=== PATIENT | female | born 1950 | race Caucasian/White ===

== ENCOUNTER 2016-08-16 07:35 | Emergency (ER) | payer BC ==
[2016-08-16 08:00] VITALS: BP 137/68
[2016-08-16] MEDS ORDERED: predniSONE TAB* 20 MG PO ONE (08:34)
--- NOTE | 2016-08-16 08:42 | UC ---
Skin Complaint HPI - HPI Summary HPI Summary: 66 yo female with progressively worsening pruritic rash x days minimal relief with bendadryl no f/c no URI symptoms no intra oral complaints - History of Current Complaint Chief Complaint: UCRash Time Seen by Provider: 08/16/16 08:09 Stated Complaint: SKIN COMPLAINT Hx Obtained From: Patient Onset/Duration: Sudden Onset, Lasting Days Timing: Constant Onset Severity: Moderate Pain Intensity: 0 Pain Scale Used: 0-10 Numeric Location: Diffuse Character: Pruritus, Hives, Redness Aggravating: Clothing, Touch Alleviating: Cold Compresses Associated Signs & Symptoms: Positive: Rash - Allergy/Home Medications Allergies/Adverse Reactions: Allergies Allergy/AdvReac Type Severity Reaction Status Date / Time Penicillins Allergy Rash Verified 08/16/16 07:54 Home Medications: Home Medications Cetirizine* [ZyrTEC*] 10 mg PO BEDTIME 08/16/16 [History Confirmed 08/16/16] Cholecalciferol TAB* [Vitamin D TAB*] 1,000 unit PO QAM 08/16/16 [History Confirmed 08/16/16] Diphenhydramine HCl [Benadryl Allergy] 50 mg PO Q6H PRN 08/16/16 [History Confirmed 08/16/16] Multivitamins/Minerals TAB* [Thera M Plus TAB*] 1 tab PO QAM 08/16/16 [History Confirmed 08/16/16] Simvastatin TAB(NF) [Zocor(NF)] 20 mg PO BEDTIME 08/16/16 [History Confirmed 08/01] Topiramate TAB(*) [Topamax(*)] 25 mg PO BEDTIME 08/16/16 [History Confirmed 08/01] Review of Systems Constitutional: Negative Skin: Rash Eyes: Negative ENT: Negative Respiratory: Negative Cardiovascular: Negative Gastrointestinal: Negative Genitourinary: Negative Motor: Negative Neurovascular: Negative Musculoskeletal: Negative Neurological: Negative Psychological: Negative All Other Systems Reviewed And Are Negative: Yes PMH/Surg Hx/FS Hx/Imm Hx Previously Healthy: Yes - Surgical History Surgical History: None - Family History Known Family History: Positive: Hypertension, Diabetes - Social History Alcohol Use: Weekly Substance Use Type: None Smoking Status (MU): Never Smoked Tobacco - Immunization History Most Recent Influenza Vaccination: 05/15/16 Physical Exam Triage Information Reviewed: Yes Appearance: Well-Appearing, No Pain Distress, Well-Nourished Vital Signs: Initial Vital Signs Temp 98.3 F 08/16/16 07:56 Pulse 84 08/16/16 07:56 Resp 16 08/16/16 07:56 BP 137/68 08/16/16 07:56 Pulse Ox 100 08/16/16 07:56 Vital Signs Reviewed: Yes Eyes: Positive: Conjunctiva Clear ENT: Positive: Hearing grossly normal, TMs normal. Negative: Pharyngeal erythema, Nasal congestion, Nasal drainage, Tonsillar exudate, Trismus, Muffled/ hoarse voice Dental: Negative: Dental Fracture @, Abscess @ Neck: Positive: Supple, Nontender, No Lymphadenopathy Respiratory: Positive: Lungs clear, Normal breath sounds, No respiratory distress Cardiovascular: Positive: RRR, No Murmur. Negative: Tachycardia, Bradycardia Musculoskeletal: Positive: ROM Intact, No Edema Neurological: Positive: Alert Psychological Exam: Normal Skin: Positive: rashes - urticaria/almost confluent on back Course/Dx - Diagnoses Provider Diagnoses: URTICARIA Discharge - Discharge Plan Condition: Stable Disposition: HOME Prescriptions: Prednisone [Deltasone] 40 mg PO DAILY #8 tab Patient Education Materials: Urticaria (ED) Referrals: Non Staff,Doctor [Primary Care Provider] - Additional Instructions: continue benadryl cool compresses recheck for new or worsening symptoms see your MD in 5 days if not completely better
== END 2016-08-16 08:42 | disposition home or self-care (01) ==
LOC: UCCORT 07:35
DX: L50.9 Urticaria, unspecified (principal); Z88.0 Allergy status to penicillin
CPT/HCPCS: 99202; G0463; J7512